=== PATIENT | female | born 1970 | race Caucasian/White ===

== ENCOUNTER 2016-10-17 07:04 | Day surgery (SDC) | payer OTHER ==
[2016-10-11 14:01] LABS: HEMATOCRIT 41.6 % (36.0-48.0); HEMOGLOBIN 13.7 g/dL (12.0-16.0)
[2016-10-11 14:14] LABS: BUN (BLOOD UREA NITROGEN) 14 MG/DL (6-23); CALCIUM, SERUM 9.1 MG/DL (8.5-10.4); CHLORIDE, SERUM 105 MMOL/L (96-112); CO2 (CARBON DIOXIDE) 28 MMOL/L (24-34); CREATININE 0.85 MG/DL (0.55-1.02); GFR AFRICAN AMERICAN 95 ML/MIN (>=60); GFR NON AFRICAN AMERICAN 82 ML/MIN (>=60); SODIUM, SERUM 139 MMOL/L (135-148)
[2016-10-11 14:16] LABS: GLUCOSE, SERUM 287 MG/DL (60-99)
--- NOTE | ~2016-10-17 | OP ---
Record Of Operation [facility] [address] [facility] [address] [place]. [address] NAME: JADE CLAY : 66 STATUS : [facility]#: [id number] AGE: 45 ADM/REG DATE : 10/17/16 MR#: [id number] REPORT SERV DATE: 10/17/16 DICTATED BY: TYLER DEL CID DATE: 10/17/16 REPORT STATUS : Draft TRANSCRIBED BY: MODAnabel DATE: 10/17/16 DATE OF PROCEDURE: 10/17/2016 PREOPERATIVE DIAGNOSES: 1. Recurrent pilonidal sinus. 2. Morbid obesity with BMI of 51.7. 3. Insulin-dependent diabetes mellitus. 4. Hypertension. POSTOPERATIVE DIAGNOSES: 1. Recurrent pilonidal sinus. 2. Morbid obesity with BMI of 51.7. 3. Insulin-dependent diabetes mellitus. 4. Hypertension. PROCEDURE: Excision of recurrent complicated pilonidal sinus and cyst with layered closure (5.5 cm). ANESTHESIA: General. SURGEON: Tyler Del Cid M.D. BINGO MANAGER: Artie. COMPLICATIONS: None. DRAINS: None. ESTIMATED BLOOD LOSS: 10 mL. FINDINGS: The patient was noted to have a pilonidal sinus and cyst with minimal erythema off the left side of the midline at the superior aspect of the lumbosacral region. There was minimal purulent drainage at the skin with no deep tissue inflammation or infection. Therefore, a layered closure was attempted. OPERATIVE TECHNIQUE: The patient was brought to the operating room and placed on the table in supine position. She had preoperative IV antibiotics. She had sequential hose in place. She underwent general endotracheal anesthesia and then was placed on the operative table in prone position. After she was correctly positioned, the time-out was completed. She was previously prepped and draped. Local anesthesia was instilled to the proposed skin incision site. A 15 blade knife was used to make an ellipse around the sinus off the midline to the left side in vertical fashion. The incision was carried down to the deep subcutaneous tissues to excise all the cyst and any inflammatory tissue until healthy yellow subcutaneous fat was identified. The wound was then thoroughly irrigated. The wound was approximately 3.5 cm deep. The deep subcutaneous tissues were noted to have come together without tension and therefore, interrupted 2-0 Vicryl sutures were placed in the deep subcutaneous tissues Record Of Operation [facility] [address] [place]. [address] NAME: JADE CLAY : 66 STATUS : [facility]#: [id number] AGE: 45 ADM/REG DATE : 10/17/16 MR#: [id number] REPORT SERV DATE: 10/17/16 DICTATED BY: TYLER DEL CID DATE: 10/17/16 REPORT STATUS : Draft TRANSCRIBED BY: MODL DATE: 10/17/16 followed by superficial subcutaneous interrupted stitches using 3-0 Vicryl sutures. The layers were irrigated as they were closed. The skin edges were then reapproximated using vertical mattress 3-0 Prolene sutures. Sterile bandage was applied. She was extubated and taken to the recovery room in stable condition. All sponge and needle counts were reported correct. /CIARA Tyler Del Cid M.D. / [id number] CC: Tyler Del Cid M.D.
[~2016-10-17 07:04] MED LIST: AMARYL2 PO; CONTRAVE ER 8-1 EACH PO; EXFORGE1 TA2 PO; GLUCOPHAGE1000 MG PO; HCTZ25B PO; LANTUSCART SC; MULTIVIT/MIN PO; NEUR300 PO; SYN.05 PO; VICTOZA18 MG/3 ML SC
== END 2016-10-17 13:37 | disposition home or self-care (01) ==
LOC: SDC 07:04
PROVIDERS: Surgery
PROC: 0JB90ZZ Excision of Buttock Subcutaneous Tissue and Fascia, Open Approach (ICD-10-PCS; principal; 2016-10-17 09:00)
DX: L05.01 Pilonidal cyst with abscess (principal); I10 Essential (primary) hypertension; E11.9 Type 2 diabetes mellitus without complications; E66.01 Morbid (severe) obesity due to excess calories; E03.9 Hypothyroidism, unspecified; Z68.43 Body mass index [BMI] 50.0-59.9, adult; Z79.899 Other long term (current) drug therapy; Z79.84 Long term (current) use of oral hypoglycemic drugs; Z79.4 Long term (current) use of insulin
CPT/HCPCS: 80048; 82962; 85014; 85018; 88304; 93005; A9270-GY; J0690; J1170; J2250; J2270; J2405; J2710; J3010